=== PATIENT | male | born 1970 | race African-American/Black ===

== ENCOUNTER 2019-08-21 15:21 | Emergency (ER) | payer BC, OTHER ==
[~2019-08-21] VITALS: Ht 182.9 cm; Wt 85.3 kg
[~2019-08-21 15:21] MED LIST: HYOS0.1264 PO; OMEP20CA5 PO; TRAM-48 PO
[2019-08-21] MEDS ORDERED: IV NORMAL SALINE 1,000ML 1,000 ML IV SCH (15:36)
--- NOTE | 2019-08-21 15:41 | PHYS DOC ---
Past History Past Medical History: GERD Past Surgical History: No Surgical History Alcohol Use: None Drug Use: None Adult General Chief Complaint Chief Complaint: FLU SYMPTOM HPI HPI Marko is a 49-year-old male who presents with complaint of upper abdominal pain for the last 4 days. Patient rates his pain to be a 10 out of 10. He states that he has been nauseated and states that he has vomited approximately 300 times since August 17. Patient states that pain is worsened with movement. He states also worsened if he tries to eat or drink anything. Patient states that he has not been able to keep anything down since vomiting started. He states his last bowel movement was 3 days ago. He denies any fever. He denies any chest pain or shortness breath. He states that nothing is improving his symptoms.[] Review of Systems Review of Systems Constitutional: Denies fever or chills [] Respiratory: Denies cough or shortness of breath [] Cardiovascular: No additional information not addressed in HPI [] GI: Complains of abdominal pain with nausea and vomiting. Denies diarrhea [] Integument: Denies rash or skin lesions [] Neurologic: Denies headache, focal weakness or sensory changes [] All other systems were reviewed and found to be within normal limits, except as documented in this note. Allergies Allergies Allergies Coded Allergies Type Severity Reaction Last Updated Verified No Known Drug Allergies 11/24/14 No Physical Exam Physical Exam Constitutional: Well developed, well nourished, in moderate distress, non-toxic appearance. [] HENT: Normocephalic, atraumatic, bilateral external ears normal, oropharynx moist, no oral exudates, nose normal. [] Eyes: PERRLA, EOMI, conjunctiva normal, no discharge. [] Neck: Normal range of motion, no tenderness, supple. [] Cardiovascular: Regular rate and rhythm[] Lungs & Thorax: Bilateral breath sounds clear to auscultation [] Abdomen: Bowel sounds decreased, soft, with moderate right upper quadrant tenderness. [] Skin: Cool, diaphoretic, no erythema, no rash. [] Extremities: No tenderness, no cyanosis, no clubbing, ROM intact, no edema. [] Neurologic: Alert and oriented X 3, no focal deficits noted. [] EKG EKG [] Radiology/Procedures Radiology/Procedures [] Impressions: PROCEDURE: CT ABD PELV W/ IV CONTRST ONLY CT abdomen and pelvis with contrast: Reason for examination: Right upper quadrant abdominal pain. Comparison is made to previous studies dated 10/03/2016 and 05/30/2016. Helical images were obtained through the abdomen and pelvis with intravenous administration of 75 mL of Omnipaque 300. Reconstruction was performed in sagittal and coronal planes. Exposure: One or more of the following individualized dose reduction techniques were utilized for this examination: 1. Automated exposure control 2. Adjustment of the mA and/or kV according to patient size 3. Use of iterative reconstruction technique. The lung bases are clear. The heart size is normal with no pericardial effusion. The liver continue show a focal hypodensity in the region of the fissure of ligamentum teres which is unchanged. No focal abnormality seen at the spleen, adrenal glands, pancreas or gallbladder. The abdominal aorta and inferior vena cava show no acute abnormalities. There is arteriosclerotic vascular calcification in the aorta however. The kidneys show no renal masses, renal calculi, hydronephrosis or evidence of obstructive uropathy. The stomach is not abnormally distended and there is no wall thickening. No abnormality seen at the duodenum. There does appear to be some mild dilatation of the proximal jejunum without apparent wall thickening. Distally however the small bowel caliber is normal with no wall thickening or apparent obstruction. No abnormality seen at the appendix. The colon shows a few diverticuli in the sigmoid colon but no evidence of diverticulosis, diverticulitis or colitis. The bladder is not optimally distended. No abnormality seen at the prostate gland or seminal vesicles. No free fluid or free air is seen in the abdomen or pelvis. There are no acute bony abnormality seen. IMPRESSION: Dilatation of the proximal jejunum without evidence of wall thickening or obstruction. No other acute abnormality seen in the abdomen or pelvis. Electronically signed by: Maia Sherwood MD (08/21/2019 5:04 PM) [facility] DICTATED AND SIGNED BY: MAIA SHERWOOD MD DATE: 08/21/19 9921 CC: BROWN CLARKE Jr. DO; DONAL SINGLETON ~ Course & Med Decision Making Course & Med Decision Making Pertinent Labs and Imaging studies reviewed. (See chart for details) [] Dragon Disclaimer Dragon Disclaimer This electronic medical record was generated, in whole or in part, using a voice recognition dictation system. Departure Departure: Impression: Primary Impression: Epigastric abdominal pain Additional Impressions: Intractable vomiting Acute kidney injury Disposition: 02 XFER SHT-TRM HOSP Admitting Physician: Shima Harper Condition: IMPROVED Referrals: DONAL SINGLETON (PCP) Problem Qualifiers Additional Impressions: Intractable vomiting Vomiting type: unspecified Nausea presence: with nausea Qualified Codes: R11.2 - Nausea with vomiting, unspecified BROWN CLARKE Jr. DO Aug 21, 2019 15:41
[2019-08-21] MEDS ORDERED: IOHEXOL 300 MG/ML 75 ML VIAL. IV ONE (15:45)
[2019-08-21] MEDS ORDERED: ONDANSETRON PF 4 MG/2 ML VIAL. IVP ONE (15:45)
[2019-08-21 15:59] VITALS: BP 127/72
[2019-08-21 16:25] LABS: CALCIUM 10.4 mg/dL (8.5-10.1); GFR 19.4; POTASSIUM 3.3 mmol/L (3.5-5.1)
[2019-08-21 16:29] LABS: BASO # 0.1 x10^3/uL (0.0-0.2); BASO % 0 % (0-3); EOS % 0 % (0-3); HEMATOCRIT 58.1 % (39.0-53.0); LYMPH # 2.3 x10^3/uL (1.0-4.8); LYMPH % 10 % (24-48); MEAN CORPUSCULAR HEMOGLOBIN 35 pg (25-35); MEAN CORPUSCULAR HGB CONC 34 g/dL (31-37); MEAN CORPUSCULAR VOLUME 100 fL (79-100); MONO # 1.5 x10^3/uL (0.0-1.1); MONO % 7 % (0-9); NEUT # 19.1 x10^3uL (1.8-7.7); NEUT % 83 % (31-73); PLATELET COUNT 280 x10^3/uL (140-400); RED CELL DISTRIBUTION WIDTH 13.9 % (11.5-14.5)
[2019-08-21 16:31] LABS: ALBUMIN 5.4 g/dL (3.4-5.0); ALBUMIN/GLOBULIN RATIO 1.1 (1.0-1.7); TOTAL BILIRUBIN 0.8 mg/dL (0.2-1.0); TOTAL PROTEIN 10.2 g/dL (6.4-8.2)
[2019-08-21] MEDS ORDERED: IV NORMAL SALINE 1,000ML 1,000 ML IV ONE (17:00)
--- NOTE | 2019-08-21 17:07 | RAD ---
CT abdomen and pelvis with contrast: Reason for examination: Right upper quadrant abdominal pain. Comparison is made to previous studies dated 10/03/2016 and 05/30/2016. Helical images were obtained through the abdomen and pelvis with intravenous administration of 75 mL of Omnipaque 300. Reconstruction was performed in sagittal and coronal planes. Exposure: One or more of the following individualized dose reduction techniques were utilized for this examination: 1. Automated exposure control 2. Adjustment of the mA and/or kV according to patient size 3. Use of iterative reconstruction technique. The lung bases are clear. The heart size is normal with no pericardial effusion. The liver continue show a focal hypodensity in the region of the fissure of ligamentum teres which is unchanged. No focal abnormality seen at the spleen, adrenal glands, pancreas or gallbladder. The abdominal aorta and inferior vena cava show no acute abnormalities. There is arteriosclerotic vascular calcification in the aorta however. The kidneys show no renal masses, renal calculi, hydronephrosis or evidence of obstructive uropathy. The stomach is not abnormally distended and there is no wall thickening. No abnormality seen at the duodenum. There does appear to be some mild dilatation of the proximal jejunum without apparent wall thickening. Distally however the small bowel caliber is normal with no wall thickening or apparent obstruction. No abnormality seen at the appendix. The colon shows a few diverticuli in the sigmoid colon but no evidence of diverticulosis, diverticulitis or colitis. The bladder is not optimally distended. No abnormality seen at the prostate gland or seminal vesicles. No free fluid or free air is seen in the abdomen or pelvis. There are no acute bony abnormality seen. IMPRESSION: Dilatation of the proximal jejunum without evidence of wall thickening or obstruction. No other acute abnormality seen in the abdomen or pelvis. Electronically signed by: Maia Minor MD (08/21/2019 5:04 PM) [facility]
[2019-08-21 18:58] LABS: % BANDS 1 % (0-9); % LYMPHS 13 % (24-48); % MONOS 2 % (0-10); % SEGS 84 % (35-66); PLT ESTIMATE ADEQUATE (ADEQUATE)
== END 2019-08-21 19:27 | disposition short-term general hospital (02) ==
LOC: ER 15:21
DX: N17.9 Acute kidney failure, unspecified (principal); R11.2 Nausea with vomiting, unspecified; K21.9 Gastro-esophageal reflux disease without esophagitis
CPT/HCPCS: 36415; 74177; 80053; 83690; 85007; 85025; 96361; 96374; 96375; 96376; 99285; J2405; J3010; Q9967; J7030

== ENCOUNTER 2020-03-11 11:34 | Emergency (ER) | payer BC ==
[~2020-03-11] VITALS: Ht 182.9 cm; Wt 86.7 kg
[2020-03-11] MEDS ORDERED: ONDANSETRON PF 4 MG/2 ML VIAL. IVP ONE (11:45)
[2020-03-11] MEDS ORDERED: IV NORMAL SALINE 1,000ML 1,000 ML IV ONE ×2 (11:45→13:00)
[2020-03-11 11:47] VITALS: BP 143/72
--- NOTE | 2020-03-11 12:11 | PHYS DOC ---
Past History Past Medical History: Hypertension Past Surgical History: No Surgical History Alcohol Use: None Drug Use: Marijuana General Adult EDM: Chief Complaint: NAUSEA/VOMITING/DIARRHEA HPI: HPI: 49-year-old male presents with multiple episodes of vomiting for the last 2 days. He denies diarrhea. He has not had any bowel movement in at least 2 days. He has some moderate generalized abdominal pain which started after the vomiting. The pain is a cramping sensation. He does not believe he has had a fever. He denies chills. Possible history of pancreatitis, but the patient te lls me he does not drink alcohol so he is not sure if that diagnosis was ever official. It is listed in his chart. Review of Systems: Review of Systems: Constitutional: Denies fever or chills Eyes: Denies change in visual acuity HENT: Denies nasal congestion or sore throat Respiratory: Denies cough or shortness of breath Cardiovascular: Denies chest pain or edema GI: Generalized abdominal pain, nausea, vomiting. Constipation. : Denies dysuria Musculoskeletal: Denies back pain or joint pain Integument: Denies rash Neurologic: Denies headache, focal weakness or sensory changes Endocrine: Denies polyuria or polydipsia Lymphatic: Denies swollen glands Psychiatric: Denies depression or anxiety Heart Score: Risk Factors: Risk Factors: DM, Current or recent (<one month) smoker, HTN, HLP, family history of CAD, obesity. Risk Scores: Score 0 - 3: 2.5% MACE over next 6 weeks - Discharge Home Score 4 - 6: 20.3% MACE over next 6 weeks - Admit for Clinical Observation Score 7 - 10: 72.7% MACE over next 6 weeks - Early Invasive Strategies Current Medications: Current Meds: Current Medications Medications (Trade) Dose Ordered Sig/Derrell Start Time Stop Time Status Last Admin Dose Admin Ondansetron HCl (Zofran) 8 mg 1X ONCE 03/11/20 11:45 03/11/20 11:51 DC 03/11/20 12:02 8 MG Sodium Chloride 1,000 ml @ 1,000 mls/hr 1X ONCE 03/11/20 11:45 03/11/20 12:44 03/11/20 12:02 1,000 MLS/HR Allergies: Allergies: Allergies Coded Allergies Type Severity Reaction Last Updated Verified No Known Drug Allergies 4/8/15 No Physical Exam: PE: Constitutional: Well developed, well nourished, no acute distress, non-toxic appearance. [] HENT: Normocephalic, atraumatic, bilateral external ears normal, oropharynx moist, no oral exudates, nose normal. [] Eyes: PERRLA, EOMI, conjunctiva normal, no discharge. [] Neck: Normal range of motion, no tenderness, supple, no stridor. [] Cardiovascular: Heart rate regular rhythm, no murmur [] Lungs & Thorax: Bilateral breath sounds clear to auscultation [] Abdomen: Bowel sounds normal, soft, generalized mild tenderness, no masses, no pulsatile masses. [] Skin: Warm, dry, no erythema, no rash. [] Back: No tenderness, no CVA tenderness. [] Extremities: No tenderness, no cyanosis, no clubbing, ROM intact, no edema. [] Neurologic: Alert and oriented X 3, normal motor function, normal sensory function, no focal deficits noted. [] Psychologic: Affect normal, judgement normal, mood normal. [] Current Patient Data: Vital Signs: Vital Signs Date Time Temp Pulse Resp B/P (MAP) Pulse Ox O2 Delivery O2 Flow Rate FiO2 03/11/20 11:47 97.8 95 18 143/72 (95) 98 Room Air EKG: EKG: [] Radiology/Procedures: Radiology/Procedures: [] Impressions: KUB History: Reason: constipation / Spl. Instructions: / History: Technique: Supine view the abdomen. Comparison: CT August 21, 2019 Findings: Nondilated air-filled loops of small bowel. Air and stool scattered throughout the imaged colon. Mild colonic stool burden. Imaged lung bases are unremarkable. Impression: 1. Nonobstructed bowel gas pattern. 2. Mild colonic stool burden. Electronically signed by: Patrick Mcfarlane DO (03/11/2020 12:46 PM) [id number] DICTATED AND SIGNED BY: PATRICK MCFARLANE DO DATE: 03/11/20 1246 CC: VALERIE SOUTH DO; PCP,NO ~ INDICATION: Reason: abdominal pain, low gfr / Spl. Instructions: / History: COMPARISON: August 21, 2019 TECHNIQUE: Axial CT images obtained through the abdomen and pelvis with contrast. One or more of the following individualized dose reduction techniques were utilized for this examination: 1. Automated exposure control; 2. Adjustment of the mA and/or kV according to patient size; 3. Use of iterative reconstruction technique. FINDINGS: Moderate calcific atherosclerosis. There is some infrarenal abdominal aortic ectasia. Measures up to about 27 mm. Small fat-containing umbilical hernia. No intrahepatic bile duct dilation. Limited assessment of the pancreas without intravenous contrast. The spleen is small in size. Urinary bladder has minimal urine within it with prominence of the wall. No hydronephrosis. The appendix measures approximately 7-8 mm. No dilated loops of bowel to suggest obstruction. Degenerative changes the spine. Multilevel central canal neural foraminal stenosis. IMPRESSION: * The urinary bladder is not very distended but the wall does appear thick. Would correlate with symptoms to ensure that this is from a pathologic cause such as cystitis or a bladder wall lesion. * The appendix is mildly dilated and does appear increased in size compared to prior examination. There is not definitive adjacent inflammatory changes at this time. Given that there is not definitive adjacent inflammatory changes this does not fulfill all of the CT criteria for appendicitis but since this is increased in size compared to prior would assess for symptoms within the region and lab markers to ensure that this mild enlargement isn't secondary to an early appendicitis prior to the development of adjacent visualized inflammatory changes. Electronically signed by: Nancy Burroughs MD (03/11/2020 2:05 PM) [id number] DICTATED AND SIGNED BY: NANCY BURROUGHS MD DATE: 03/11/20 1405 CC: VALERIE SOUTH DO; PCP,NO ~ Course & Med Decision Making: Course & Med Decision Making Pertinent Labs and Imaging studies reviewed. (See chart for details) The patient's white count is elevated. Looking at his history shows that it appears to be elevated at baseline. His creatinine is also very elevated but this is similar to previous. We have given him Zofran, Compazine, Benadryl in the emergency room for nausea and vomiting. Was given him morphine for his pain. CT scan shows possibility of early appendicitis, but no definitive positive criteria. He also has bladder wall thickening. Patient has significant kidney dysfunction. He has not given us a urine sample. At this time I believe the patient can be discharged with Zofran for home. He will follow-up with his primary care physician as needed. [] Chicho Disclaimer: Chicho Disclaimer: This electronic medical record was generated, in whole or in part, using a voice recognition dictation system. Departure Departure: Impression: Primary Impression: Abdominal pain Qualified Codes: R10.84 - Generalized abdominal pain Additional Impression: Nausea and vomiting Qualified Codes: R11.2 - Nausea with vomiting, unspecified Disposition: 01 HOME/RESIDENCE PRIOR TO ADM Condition: STABLE Referrals: PCP,NO (PCP) Patient Instructions: Nausea and Vomiting, [facility] Scripts Ondansetron (ONDANSETRON ODT) 4 Mg Tab.rapdis 1 TAB PO PRN Q6-8HRS PRN for VOMITING, #16 TAB Prov: VALERIE SOUTH DO 03/11/20 Justification of Admission: Justification of Admission: Justification of Admission Dx: N/A VALERIE SOUTH DO Mar 11, 2020 12:11
[2020-03-11] MEDS ORDERED: MORPHINE SULFATE 2 MG/ML DISP.SYRIN. IV ONE ×2 (12:15→12:45)
[2020-03-11 12:25] LABS: CALCIUM 9.9 mg/dL (8.5-10.1); CREATININE 4.9 mg/dL (0.7-1.3); GFR 15.4; POTASSIUM 4.6 mmol/L (3.5-5.1)
[2020-03-11 12:28] LABS: BASO % 0 % (0-3); EOS % 0 % (0-3); HEMATOCRIT 49.8 % (39.0-53.0); HEMOGLOBIN 17.2 g/dL (13.0-17.5); LYMPH # 3.3 x10^3/uL (1.0-4.8); LYMPH % 19 % (24-48); MEAN CORPUSCULAR HEMOGLOBIN 35 pg (25-35); MEAN CORPUSCULAR HGB CONC 35 g/dL (31-37); MEAN CORPUSCULAR VOLUME 102 fL (79-100); MONO # 2.2 x10^3/uL (0.0-1.1); MONO % 13 % (0-9); NEUT # 11.3 x10^3uL (1.8-7.7); NEUT % 67 % (31-73); PLATELET COUNT 258 x10^3/uL (140-400); RED BLOOD COUNT 4.91 x10^6/uL (4.30-5.70); RED CELL DISTRIBUTION WIDTH 13.4 % (11.5-14.5); WHITE BLOOD COUNT 16.8 x10^3/uL (4.0-11.0)
[2020-03-11 12:32] LABS: ALBUMIN/GLOBULIN RATIO 1.2 (1.0-1.7); TOTAL PROTEIN 9.3 g/dL (6.4-8.2)
[2020-03-11] MEDS ORDERED: diphenhydrAMINE 50 MG/ML VIAL IVP ONE (12:45)
[2020-03-11] MEDS ORDERED: METOCLOPRAMIDE HCL 10 MG/2 ML VIAL. IVP ONE (12:45)
--- NOTE | 2020-03-11 12:48 | RAD ---
KUB History: Reason: constipation / Spl. Instructions: / History: Technique: Supine view the abdomen. Comparison: CT August 21, 2019 Findings: Nondilated air-filled loops of small bowel. Air and stool scattered throughout the imaged colon. Mild colonic stool burden. Imaged lung bases are unremarkable. Impression: 1. Nonobstructed bowel gas pattern. 2. Mild colonic stool burden. Electronically signed by: Patrick Mcfarlane DO (03/11/2020 12:46 PM) [id number]
[2020-03-11] MEDS ORDERED: PROCHLORPERAZINE 10 MG/2 ML VIAL. IV PRN (13:00)
[2020-03-11] MEDS ORDERED: PROCHLORPERAZINE 10 MG/2 ML VIAL. IV ONE ×2 (13:00)
[2020-03-11 13:11] LABS: % LYMPHS 25 % (24-48); % MONOS 13 % (0-10); % SEGS 62 % (35-66); PLT ESTIMATE ADEQUATE (ADEQUATE)
--- NOTE | 2020-03-11 14:07 | RAD ---
INDICATION: Reason: abdominal pain, low gfr / Spl. Instructions: / History: COMPARISON: August 21, 2019 TECHNIQUE: Axial CT images obtained through the abdomen and pelvis with contrast. One or more of the following individualized dose reduction techniques were utilized for this examination: 1. Automated exposure control; 2. Adjustment of the mA and/or kV according to patient size; 3. Use of iterative reconstruction technique. FINDINGS: Moderate calcific atherosclerosis. There is some infrarenal abdominal aortic ectasia. Measures up to about 27 mm. Small fat-containing umbilical hernia. No intrahepatic bile duct dilation. Limited assessment of the pancreas without intravenous contrast. The spleen is small in size. Urinary bladder has minimal urine within it with prominence of the wall. No hydronephrosis. The appendix measures approximately 7-8 mm. No dilated loops of bowel to suggest obstruction. Degenerative changes the spine. Multilevel central canal neural foraminal stenosis. IMPRESSION: * The urinary bladder is not very distended but the wall does appear thick. Would correlate with symptoms to ensure that this is from a pathologic cause such as cystitis or a bladder wall lesion. * The appendix is mildly dilated and does appear increased in size compared to prior examination. There is not definitive adjacent inflammatory changes at this time. Given that there is not definitive adjacent inflammatory changes this does not fulfill all of the CT criteria for appendicitis but since this is increased in size compared to prior would assess for symptoms within the region and lab markers to ensure that this mild enlargement isn't secondary to an early appendicitis prior to the development of adjacent visualized inflammatory changes. Electronically signed by: Lopez Ware MD (03/11/2020 2:05 PM) [id number]
[2020-03-11] MEDS ORDERED: ONDA4TAB12 PO (14:30)
== END 2020-03-11 14:50 | disposition home or self-care (01) ==
LOC: ER 11:34
DX: R10.84 Generalized abdominal pain (principal); R11.2 Nausea with vomiting, unspecified; K59.00 Constipation, unspecified; I10 Essential (primary) hypertension
CPT/HCPCS: 36415; 74018; 74176; 80053; 83690; 85007; 85025; 96361; 96374; 96375; 96376; 99285; J0780; J1200; J2270; J2405; J7030

== ENCOUNTER 2021-02-21 17:02 | Emergency (ER) | payer BC ==
[~2021-02-21] VITALS: Ht 180.3 cm; Wt 87.2 kg
[~2021-02-21 17:02] MED LIST changes: +ONDA4TAB12 PO
[2021-02-21] MEDS ORDERED: ONDANSETRON PF 4 MG/2 ML VIAL. IVP ONE ×2 (17:30→21:30)
[2021-02-21] MEDS ORDERED: FAMOTIDINE 20 MG/2 ML VIAL IVP ONE (17:30)
[2021-02-21] MEDS ORDERED: MORPHINE SULFATE 4 MG/ML DISP.SYRIN. IV ONE ×2 (17:45→18:15)
[2021-02-21 17:52] LABS: BASO % 0 % (0-3); EOS % 0 % (0-3); HEMATOCRIT 42.2 % (39.0-53.0); LYMPH # 1.2 x10^3/uL (1.0-4.8); LYMPH % 10 % (24-48); MEAN CORPUSCULAR HEMOGLOBIN 35 pg (25-35); MEAN CORPUSCULAR HGB CONC 33 g/dL (31-37); MEAN CORPUSCULAR VOLUME 106 fL (79-100); MONO # 0.7 x10^3/uL (0.0-1.1); MONO % 5 % (0-9); NEUT # 10.7 x10^3uL (1.8-7.7); NEUT % 84 % (31-73); PLATELET COUNT 242 x10^3/uL (140-400); RED CELL DISTRIBUTION WIDTH 13.3 % (11.5-14.5); WHITE BLOOD COUNT 12.7 x10^3/uL (4.0-11.0)
--- NOTE | 2021-02-21 17:55 | EKG ---
[address] [address] Test Date: 2021-02-21 Test Time: 17:38:40 Pat Name: JALEN LARA Department: Room: Gender: M [employer] Ad[employer]er: STEFFEN : 1970 Requested By: JUAREZ PETTIT Order Number: [id number] Reading MD: Chencho Shukla Measurements Intervals [place] Rate: 95 P: 50 WV: 156 QRS: 43 QRSD: 72 T: 72 QT: 338 QTc: 428 Interpretive Statements SINUS RHYTHM T ABNORMALITY IN HIGH LATERAL LEADS ABNORMAL ECG Electronically Signed On 02-22-2021 11:48:15 CDT by Chencho Shukla
[2021-02-21] MEDS ORDERED: IV NORMAL SALINE 1,000ML 1,000 ML IV ONE (18:15)
--- NOTE | 2021-02-21 20:41 | RAD ---
EXAMINATION: CT ABDOMEN+PELVIS WO CLINICAL HISTORY: Generalized abdominal pain, nausea, vomiting TECHNIQUE: Non-IV contrast imaging of the abdomen and pelvis was performed using standard technique, scanning from just above the dome of the diaphragm to the symphysis pubis. Unenhanced imaging is chappell ited for the evaluation of some intra-abdominal and pelvic pathology. CT Dose Reduction Employed: One or more of the following individualized dose reduction techniques wer e utilized for this examination: 1. Automated exposure control 2. Adjustment of the mA and/or kV ac cording to patient size 3. Use of iterative reconstruction technique. COMPARISON: 03/11/2020 FINDINGS: Visualized heart and lungs unremarkable. Small spleen, similar to prior study. Liver, gallbladder, pancreas, adrenal glands, and kidneys unrem arkable. Mildly filled urinary bladder with diffusely prominent bladder wall, similar to prior study. Mildly e nlarged prostate. No dilated bowel. Air-filled appendix essentially unchanged in diameter. Arterial atherosclerotic calcification without aneurysm. Multilevel thoracolumbar degenerative changes, similar to prior study. IMPRESSION: No evidence of acute abdominopelvic abnormality or significant interval change. Electronically signed by: Nick Gonzalez DO (02/21/2021 8:39 PM) [facility]
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
[2021-02-21] MEDS ORDERED: BENZOCAINE 20% ORAL GEL 11.9GM TUBE. TP PRN (21:30)
[2021-02-21 22:05] LABS: CALCIUM 8.8 mg/dL (8.5-10.1); POTASSIUM 5.6 mmol/L (3.5-5.1)
[2021-02-21 22:11] LABS: ALBUMIN 3.9 g/dL (3.4-5.0); ALBUMIN/GLOBULIN RATIO 1.2 (1.0-1.7); TOTAL BILIRUBIN 0.4 mg/dL (0.2-1.0); TOTAL PROTEIN 7.2 g/dL (6.4-8.2)
[2021-02-21 22:34] LABS: BARBITURATES NEG (NEG); BENZODIAZEPINES NEG (NEG); CANNABINOIDS POS (NEG); COCAINE NEG (NEG); METHADONE NEG (NEG); OPIATES POS (NEG); PHENCYCLIDINE NEG (NEG)
[2021-02-21 22:36] LABS: AMPHETAMINE/METHAMPHETAMINE NEG (NEG)
[2021-02-21 22:39] LABS: BILIRUBIN,URINE NEG (NEG); CLARITY,URINE HAZY; COLOR,URINE YELLOW; GLUCOSE,URINE NEG (NEG)
[2021-02-21 22:40] LABS: NITRITE,URINE NEG (NEG); UROBILINOGEN,URINE 0.2 mg/dL (0.2 mg/dL)
[2021-02-21 22:41] LABS: BACTERIA,URINE FEW /HPF (0-FEW); RBC,URINE 0 /HPF (0-2); SQUAMOUS EPITHELIAL CELL,UR OCC /LPF; WBC,URINE 20-40 /HPF (0-4)
[2021-02-21 23:00] VITALS: BP 136/90
== END 2021-02-21 23:19 | disposition home or self-care (01) ==
LOC: ER 17:02
DX: R11.2 Nausea with vomiting, unspecified (principal); R10.84 Generalized abdominal pain; I10 Essential (primary) hypertension
CPT/HCPCS: 36415; 74176; 80053; 80307; 81001; 83735; 85025; 87086; 93005; 96361; 96374; 96375; 96376; 99285; J2270; J2405; J3490; J7030

== ENCOUNTER 2021-09-25 10:59 | Emergency (ER) | payer BC, OTHER ==
[~2021-09-25] VITALS: Ht 182.9 cm; Wt 89.0 kg
[2021-09-25] MEDS ORDERED: IV NORMAL SALINE 1,000ML 1,000 ML IV ONE ×4 (11:15→15:30)
[2021-09-25] MEDS ORDERED: FAMOTIDINE 20 MG/2 ML VIAL IVP ONE (11:15)
[2021-09-25] MEDS ORDERED: ONDANSETRON PF 4 MG/2 ML VIAL. IVP ONE (11:15)
--- NOTE | 2021-09-25 11:44 | RAD ---
EXAM: Abdomen series. HISTORY: Pain. COMPARISON: CT dated 02/21/2021. FINDINGS: A frontal view of the chest and frontal upright and supine views of the abdomen are obtaine d. There is no infiltrate, pleural effusion or pneumothorax. The heart is normal in size. There is no evidence of bowel obstruction. There is no free air. IMPRESSION: 1. No acute pulmonary finding. 2. No obstructive bowel gas pattern. Electronically signed by: Ivelisse Vargas MD (09/25/2021 11:42 AM) [id number]
[2021-09-25 11:51] LABS: BASO # 0.1 x10^3/uL (0.0-0.2); BASO % 1 % (0-3); EOS % 0 % (0-3); HEMATOCRIT 46.3 % (39.0-53.0); HEMOGLOBIN 15.7 g/dL (13.0-17.5); LYMPH # 2.7 x10^3/uL (1.0-4.8); LYMPH % 20 % (24-48); MEAN CORPUSCULAR HEMOGLOBIN 34 pg (25-35); MEAN CORPUSCULAR HGB CONC 34 g/dL (31-37); MEAN CORPUSCULAR VOLUME 100 fL (79-100); MONO # 1.4 x10^3/uL (0.0-1.1); MONO % 10 % (0-9); NEUT # 9.5 x10^3uL (1.8-7.7); NEUT % 69 % (31-73); PLATELET COUNT 296 x10^3/uL (140-400); RED BLOOD COUNT 4.62 x10^6/uL (4.30-5.70); RED CELL DISTRIBUTION WIDTH 13.7 % (11.5-14.5); WHITE BLOOD COUNT 13.7 x10^3/uL (4.0-11.0)
[2021-09-25 12:00] LABS: CREATININE 12.2 mg/dL (0.7-1.3); GFR 5.3; POTASSIUM 4.3 mmol/L (3.5-5.1)
[2021-09-25 12:07] LABS: ALBUMIN 4.8 g/dL (3.4-5.0); ALBUMIN/GLOBULIN RATIO 1.3 (1.0-1.7); TOTAL BILIRUBIN 0.5 mg/dL (0.2-1.0); TOTAL PROTEIN 8.5 g/dL (6.4-8.2)
[2021-09-25 12:13] LABS: INFLUENZA A PATIENT NEGATIVE (NEGATIVE); INFLUENZA B PATIENT NEGATIVE (NEGATIVE)
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
--- NOTE | 2021-09-25 13:05 | RAD ---
EXAM: Abdomen and pelvis CT without intravenous contrast. HISTORY: Nausea, vomiting and diarrhea. TECHNIQUE: Computed tomographic images of the abdomen and pelvis were obtained without contrast. Mult iplanar reformatting was performed. *One or more of the following individualized dose reduction techniques were utilized for this examina tion: 1. Automated exposure control. 2. Adjustment of the mA and/or kV according to patient size. 3. Use of iterative reconstruction technique. COMPARISON: 02/21/2021. FINDINGS: Evaluation of the lower thorax is unremarkable. No hepatic lesion is seen on this noncontra st exam. The gallbladder, pancreas, spleen and adrenal glands are unremarkable. There is no evidence of nephroureterolithiasis or hydronephrosis. The appendix is prominent in caliber. However, there are no secondary findings to suggest acute appen dicitis. There is no bowel obstruction. There is mild urinary bladder wall thickening likely due to r elative under distention. There is aortobiiliac atherosclerosis. There is no lymphadenopathy. There are degenerative changes th roughout the spine. This results in foraminal and central canal stenosis primarily at L4-L5 and L5-S1 . IMPRESSION: 1. Prominent appendix caliber, similar compared to the prior exam. There are no convincing secondary findings to suggest appendicitis. 2. Mild urinary bladder wall thickening likely due to underdistention. Correlate with urinalysis to e xclude cystitis. Electronically signed by: Ivelisse Vargas MD (09/25/2021 1:03 PM) [id number]
--- NOTE | 2021-09-25 13:07 | EKG ---
[address] [address] Test Date: 2021-09-25 Test Time: 12:54:21 Pat Name: JALEN LARA Department: Room: Gender: M Building Maintenance Superintendent: RUFUS : 1970 Requested By: ALYSHA ELENA Order Number: [id number] Reading MD: Tian Carrillo MD Measurements Intervals Commerce Rate: 74 P: 60 MS: 154 QRS: 53 QRSD: 74 T: 64 QT: 414 QTc: 465 Interpretive Statements SINUS RHYTHM PAC Electronically Signed On 10-03-2021 8:29:28 CENA by Tian Carrillo MD
[2021-09-25 18:51] LABS: BARBITURATES NEG (NEG); BENZODIAZEPINES NEG (NEG); CANNABINOIDS POS (NEG); COCAINE NEG (NEG); METHADONE NEG (NEG); OPIATES NEG (NEG); PHENCYCLIDINE NEG (NEG)
[2021-09-25 19:04] LABS: AMPHETAMINE/METHAMPHETAMINE NEG (NEG)
[2021-09-25 19:25] VITALS: BP 130/76
[2021-09-25 19:31] LABS: BILIRUBIN,URINE SMALL (NEG); CLARITY,URINE CLOUDY; COLOR,URINE YELLOW; GLUCOSE,URINE NEG (NEG)
[2021-09-25 19:32] LABS: BACTERIA,URINE 0 /HPF (0-FEW); NITRITE,URINE NEG (NEG); SQUAMOUS EPITHELIAL CELL,UR MOD /LPF; UROBILINOGEN,URINE 0.2 mg/dL (0.2 mg/dL)
[2021-09-25 19:33] LABS: HYALINE CASTS, URINE MOD /HPF
== END 2021-09-25 19:32 | disposition short-term general hospital (02) ==
LOC: ER 10:59
DX: N17.9 Acute kidney failure, unspecified (principal); R11.2 Nausea with vomiting, unspecified; R19.7 Diarrhea, unspecified; R10.84 Generalized abdominal pain; I10 Essential (primary) hypertension; Z20.822 Contact with and (suspected) exposure to COVID-19
CPT/HCPCS: 36415; 74022; 74176; 80053; 80307; 81001; 83690; 84484; 85025; 87086; 87428; 93005; 96361; 96374; 96375; 99285; C9803; J2405; J3490; J7030; U0003